=== PATIENT | female | born 1975 | race Two or more races ===

== ENCOUNTER 2016-12-04 13:02 | Emergency (ER) | payer BC ==
[2016-12-04] MEDS ORDERED: NS 0.9% 1000 ML* 1,000 ML IV ONE (13:18)
[2016-12-04 14:07] LABS: Hematocrit 33 % (35-47); Mean Corpuscular HGB Conc 31 g/dl (31-36); Mean Corpuscular Hemoglobin 22 pg (27-31); Mean Corpuscular Volume 72 fL (80-97); Mean Platelet Volume 8 um3 (7.4-10.4); Red Blood Count 4.53 10^6/ul (4.0-5.4); Red Cell Distribution Width 20 % (10.5-15); White Blood Count 20.6 10^3/ul (3.5-10.8)
[2016-12-04 14:11] LABS: Add Diff/Slide Review? Slide Review Added; Comments Flag Yes
[2016-12-04 14:26] LABS: Albumin 3.5 g/dL (3.2-5.2); BUN/Creatinine Ratio 13.4 (8-20); Calcium 7.9 mg/dL (8.6-10.3); EGFR African American 124.7 (>60); Globulin 2.6 g/dL (2-4); Potassium 2.8 mmol/L (3.5-5.0); Total Bilirubin 0.4 mg/dL (0.2-1.0); Total Protein 6.1 g/dL (6.4-8.9)
[2016-12-04] MEDS ORDERED: Potassium Chlor TAB* 20 MEQ TAB.ER PO ONE (15:29)
[2016-12-04 15:39] VITALS: BP 101/49
--- NOTE | 2016-12-04 15:45 | ED ---
Leonel Ferraro Rebecca, scribed for Jericho Bethea MD on 12/04/16 at 1319 . Allergic Reaction/Systemic - HPI Summary HPI Summary: Pt is a 41 y/o F BIBA who presents to ED c/o allergic reaction s/p pine nut ingestion. Immediately after eating she began feeling sx. Currently, she is c/o diffuse pruritis. Sx aggravated by nothing, alleviated by treatment en route to ED. Reports feeling markedly better than at onset. Denies tongue or lip swelling , throat tightening and SOB. Per nurse, she was treated with Cellular Medrol, Epi, Benadryl, 1 duoneb and saline en route by EMS. - History of Current Complaint Chief Complaint: EDAllergicReaction Time Seen by Provider: 12/04/16 13:12 Hx Obtained From: Patient Onset/Duration: Sudden Onset Severity Initially: Moderate Severity Currently: Mild Pain Intensity: 0 Pain Scale Used: 0-10 Numeric Location: Diffuse Character: Pruritus Aggravating Factor(s): Nothing Alleviating Factor(s): Other - Treatment en route Associated Signs And Symptoms: Positive: Negative. Negative: Difficulty Breathing, Throat Tightening - Allergies/Home Medications Allergies/Adverse Reactions: Allergies Allergy/AdvReac Type Severity Reaction Status Date / Time Tree Nuts Allergy Severe Swelling Verified 12/04/16 13:37 Of Face,Lips,& Throat PMH/Surg Hx/FS Hx/Imm Hx Endocrine/Hematology History: Denies: Hx Diabetes Cardiovascular History: Denies: Hx Hypertension EENT History: Reports: Other - Hx [place] nut allergy Infectious Disease History: Denies: Traveled Outside the [place] in Last 30 Days - Family History Known Family History: Negative: Cardiac Disease, Hypertension - Social History Alcohol Use: None Hx Substance Use: No Substance Use Type: Reports: None Hx Tobacco Use: No Smoking Status (MU): Never Smoked Tobacco Review of Systems Positive: Other - Denies tongue or lip swelling or throat tightening Negative: Shortness Of Breath Positive: Other - Diffuse pruritis All Other Systems Reviewed And Are Negative: Yes Physical Exam - Summary Physical Exam Summary: VITAL SIGNS: Reviewed. GENERAL: Patient is a well developed and nourished female who is lying comfortable in the stretcher. Patient is not in any acute respiratory distress. HEAD AND FACE: No signs of trauma. No ecchymosis, hematomas or skull depressions. No sinus tenderness. EYES: PERRLA, EOMI x 2, No injected conjunctiva, no nystagmus. EARS: Hearing grossly intact. Ear canals and tympanic membranes are within normal limits. MOUTH: Oropharynx within normal limits. SHe has no lip swallowing, no tongue swallowing and airway is patent. No trismus. NECK: Supple, trachea is midline, no adenopathy, no JVD, no carotid bruit, no c- spine tenderness, neck with full ROM. CHEST: Symmetric, no tenderness at palpation LUNGS: Clear to auscultation bilaterally. No wheezing or crackles. CVS: Regular rate and rhythm, S1 and S2 present, no murmurs or gallops appreciated. ABDOMEN: Soft, non-tender. No signs of distention. No rebound no guarding, and no masses palpated. Bowel sounds are normal. EXTREMITIES: FROM in all major joints, no edema, no cyanosis or clubbing. NEURO: Alert and oriented x 3. No acute neurological deficits. Speech is normal and follows commands. SKIN: Dry and warm Triage Information Reviewed: Yes Vital Signs On Initial Exam: Initial Vitals Temp Pulse Resp BP Pulse Ox 98.1 F 100 16 94/69 100 12/04/16 13:14 12/04/16 13:14 12/04/16 13:14 12/04/16 13:14 12/04/16 13:14 Vital Signs Reviewed: Yes Diagnostics - Vital Signs Vital Signs Temp Pulse Resp BP Pulse Ox 12/04/16 15:00 103 25 98/44 95 12/04/16 14:30 101 21 98/43 96 12/04/16 14:00 103 23 108/48 99 12/04/16 13:30 101 16 104/49 100 12/04/16 13:24 99 15 100 12/04/16 13:23 123/56 12/04/16 13:14 98.1 F 100 16 94/69 100 - Laboratory Lab Results: Lab Results 12/04/16 12/04/16 12/04/16 Range/Units 14:00 14:00 14:00 WBC 20.6 H (3.5-10.8) 10^3/ul RBC 4.53 (4.0-5.4) 10^6/ul Hgb 10.0 L (12.0-16.0) g/dl Hct 33 L (35-47) % MCV 72 L (80-97) fL MCH 22 L (27-31) pg MCHC 31 (31-36) g/dl RDW 20 H (10.5-15) % Plt Count 442 (150-450) 10^3/ul MPV 8 (7.4-10.4) um3 Neut % (Auto) 73.7 (38-83) % Lymph % (Auto) 20.2 L (25-47) % [place]cl[place] % (Auto) 5.6 (1-9) % Eos % (Auto) 0.4 (0-6) % Baso % (Auto) 0.1 (0-2) % Absolute Neuts (auto) 15.1 H (1.5-7.7) 10^3/ul Absolute Lymphs (auto) 4.2 (1.0-4.8) 10^3/ul Absolute Monos (auto) 1.2 H (0-0.8) 10^3/ul Absolute Eos (auto) 0.1 (0-0.6) 10^3/ul Absolute Basos (auto) 0 (0-0.2) 10^3/ul Absolute Nucleated RBC 0 10^3/ul Nucleated RBC % 0 Sodium 136 (133-145) mmol/L Potassium 2.8 L (3.5-5.0) mmol/L Chloride 105 (101-111) mmol/L Carbon Dioxide 18 L (22-32) mmol/L Anion Gap 13 H (2-11) mmol/L BUN 9 (6-24) mg/dL Creatinine 0.67 (0.51-0.95) mg/dL Est GFR ( Amer) 124.7 (>60) Est GFR (Non-Af Amer) 97.0 (>60) BUN/Creatinine Ratio 13.4 (8-20) Glucose 189 H (70-100) mg/dL Lactic Acid 4.9 H* (0.5-2.0) mmol/L Calcium 7.9 L (8.6-10.3) mg/dL Total Bilirubin 0.40 (0.2-1.0) mg/dL AST 14 (13-39) U/L ALT 11 (7-52) U/L Alkaline Phosphatase 43 (34-104) U/L Total Protein 6.1 L (6.4-8.9) g/dL Albumin 3.5 (3.2-5.2) g/dL Globulin 2.6 (2-4) g/dL Albumin/Globulin Ratio 1.3 (1-3) Result Diagrams: 12/04/16 14:00 12/04/16 14:00 Lab Statement: Any lab studies that have been ordered have been reviewed, and results considered in the medical decision making process. Re-Evaluation - Re-Evaluation First Eval Re-Evaluation Time: 14:26 Change: Improved Comment: Currently pt is asleep. Second Eval Re-Evaluation Time: 15:40 Change: Improved Comment: Feeling significantly better, expresses desire to be D/C. Allergic Reaction Course/Dx - Course Assessment/Plan: Pt is a 41 y/o F BIBA who presents to ED c/o allergic reaction s/p pine nut ingestion. Immediately after eating she began feeling sx. Currently , she is c/o diffuse pruritis. Sx aggravated by nothing, alleviated by treatment en route to ED. Reports feeling markedly better than at onset. Denies tongue or lip swelling, throat tightening and SOB. Per nurse, she was treated with Cellular Medrol, Epi, Benadryl, 1 duoneb and saline en route by EMS. At arrival P/E: Patient is not in any distress. She has been given Benadryl, solumedrol, and albuterol. SHe reports all symptoms have resolved. Blood work shows increased WBCs, mild chronic anemia, hypokalemia for which she was given KCL. Glucose 189 and lactic acid of 4.9. Patient was observed in the Ed for approximately 3 hours and her symptoms did not return. Patient reports she is asymptomatic at this time. She will be given a prescription for prednisone and epiPen. I discussed all the findings and test results with the patient. Patient was instructed to return to the emergency room immediately if any of the symptoms return or worsens. Plan of care was discussed with the patient and understands and agrees. All questions were answered at patient satisfaction. There were no further complaints or concerns. P/E: Lungs: CTA B/L. Good air exchange. No wheezing or crackles heard. CVS: S1 and S2 present. No murmurs appreciated. Patient is alert and oriented x 3. Patient is hemodynamically stable. Patient will be discharged home with follow up PMD in the next 2-3 days - Diagnoses Differential Diagnosis/HQI/PQRI: Positive: Airway Obstruction, Anaphylaxis, Angioedema, Local Allergic Reaction Provider Diagnoses: Allergic reaction to food Discharge - Discharge Plan Condition: Stable Disposition: HOME Prescriptions: Epinephrine [Epipen 2-Fred] 0.3 mg IM ONCE #1 inj predniSONE TAB* [Deltasone TAB*] 40 mg PO DAILY #8 tab Patient Education Materials: Food Allergy (ED) Referrals: [facility] [place] [facility] [Outside] - 3 Days (Follow up with your primary care physician in the next 3 days. ) The documentation as recorded by the Leonel leggett Rebecca accurately reflects the service I personally performed and the decisions made by [place] whyte Walter, MD.
[2016-12-04 16:00] LABS: C Reactive Protein 1.1 mg/L (< 5.00)
== END 2016-12-04 16:11 | disposition home or self-care (01) ==
LOC: ED 13:02
DX: T78.1XXA Other adverse food reactions, not elsewhere classified, initial encounter (principal); L29.9 Pruritus, unspecified; X58.XXXA Exposure to other specified factors, initial encounter
CPT/HCPCS: 36415; 80053; 83605; 85025; 86140; 96360; 99283; A9270-GY